=== PATIENT | male | born 1955 | race Caucasian/White ===

== ENCOUNTER 2020-12-26 15:33 | Observation (INO) ==
[2020-12-26] MEDS ORDERED: NS 0.9% 1000 ml BAG 1,000 ML IV ONE (21:35)
[2020-12-26 22:35] LABS: ABS Basophils 0.1 10^3/ul (0-0.2); ABS Eosinophils 0.1 10^3/ul (0-0.6); ABS Lymphocytes 2.4 10^3/ul (1.0-4.8); ABS Monocytes 0.8 10^3/ul (0-0.8); ABS Neutrophils 8.3 10^3/ul (1.5-7.7); Eosinophil % 1.1 %; Hematocrit 42 % (42-52); Hemoglobin 14.2 g/dL (14.0-18.0); Lymphocyte % 20.8 %; Mean Corpuscular HGB Conc 34 g/dL (31-36); Mean Corpuscular Hemoglobin 32 pg (27-31); Mean Corpuscular Volume 92 fL (80-94); Platelet Count 243 10^3/uL (150-450); Red Blood Count 4.49 10^6 /uL (4.18-5.48); Red Cell Distribution Width 13 % (10-15); White Blood Count 11.7 10^3/uL (3.5-10.8)
[2020-12-26 22:41] LABS: INR 1.15 (0.86-1.15)
[2020-12-26 22:54] LABS: ALT 45 U/L (7-52); Albumin 3.9 g/dL (3.2-5.2); Albumin/Globulin Ratio 0.9 (1-3); Alkaline Phosphatase 63 U/L (35-149); Blood Urea Nitrogen 24 mg/dL (6-24); CO2 Carbon Dioxide 25 mmol/L (22-32); Chloride 95 mmol/L (101-111); EGFR African American 79.1 (>60); EGFR Non-African American 65.3 (>60); Globulin 4.3 g/dL (2-4); Glucose 176 mg/dL (70-100); Lipase 23 U/L (11.0-82.0); Sodium 133 mmol/L (135-145); Total Protein 8.2 g/dL (6.4-8.9)
[2020-12-26] MEDS ORDERED: Iodixanol (CONTRAST) 320 MG/ML 100 ML SDV IV ONE (23:00)
[2020-12-26 23:10] LABS: Troponin I 0.03 ng/mL (<0.03)
[2020-12-26 23:30] LABS: AST 20 U/L (13-39); Anion Gap 13 mmol/L (2-11)
[2020-12-27 02:31] LABS: Cholesterol 185 mg/dL; HDL Cholesterol 58.4 mg/dL; LDL Cholesterol 99 mg/dL; Triglycerides 140 mg/dL
[2020-12-27] MEDS ORDERED: Al Hydrox/Mg Hydrox/Simet LIQ 30 ML UDC PO ONE (03:02)
[2020-12-27] MEDS ORDERED: Pantoprazole VIAL 40 MG VIAL IV ONE (03:03)
[2020-12-27] MEDS ORDERED: Insulin GLARGINE 100 un/ml 10 ml VIAL SUBCUT ONE ×2 (03:11→08:07)
[2020-12-27 04:04] LABS: C Reactive Protein 229.66 mg/L (<8.01)
[2020-12-27] MEDS ORDERED: Dextrose 50% Syringe 50 ml 25 GM/50 ML SYRINGE IV PUSH PRN (08:06)
[2020-12-27] MEDS: Aspirin EC 81 mg TAB.EC (enteric coated) PO SCH (10:25)
[2020-12-27] MEDS: Enoxaparin 40 MG/0.4 ML SYR SUBCUT SCH (10:26)
[2020-12-27] MEDS: Lactated Ringers 1000 ml BAG 1,000 ML IV SCH ×2 (12:09→20:10)
[2020-12-27] MEDS ORDERED: Insulin GLARGINE 100 un/ml 10 ml VIAL SUBCUT SCH (21:00)
[2020-12-28 06:12] LABS: Hematocrit 36 % (42-52); Hemoglobin 12.7 g/dL (14.0-18.0); Mean Corpuscular HGB Conc 35 g/dL (31-36); Mean Corpuscular Hemoglobin 33 pg (27-31); Mean Corpuscular Volume 92 fL (80-94); Mean Platelet Volume 7.7 fL (7.4-10.4); Platelet Count 228 10^3/uL (150-450); Red Blood Count 3.91 10^6 /uL (4.18-5.48); Red Cell Distribution Width 13 % (10-15); White Blood Count 10.9 10^3/uL (3.5-10.8)
[2020-12-28 06:21] LABS: Calcium 8.3 mg/dL (8.6-10.3); Potassium 3.6 mmol/L (3.5-5.0)
[2020-12-28 06:27] LABS: EGFR African American 94.3 (>60); EGFR Non-African American 77.9 (>60); Phosphorus 2.3 mg/dL (2.5-5.0)
[2020-12-28] MEDS ORDERED: Polyethylene Glycol 3350 17 GM PACKET PO PRN (07:08)
[2020-12-28] MEDS ORDERED: Senna TAB 8.6 mg TAB PO PRN (07:08)
[2020-12-28] MEDS ORDERED: Magnesium Hydroxide LIQ 30 ML UDC PO PRN (07:08)
[2020-12-28] MEDS: Aspirin EC 81 mg TAB.EC (enteric coated) PO SCH (08:06)
[2020-12-28] MEDS: Enoxaparin 40 MG/0.4 ML SYR SUBCUT SCH (08:07)
[2020-12-28] MEDS ORDERED: Potassium Chlor 20 meq TAB.ER PO ONE (08:41)
[2020-12-28] MEDS ORDERED: Magnesium Hydroxide LIQ 30 ML UDC PO SCH (09:00)
[2020-12-28 12:47] VITALS: BP 117/88
[2020-12-28 15:24] LABS: Immunoglobulin Subclass IgG4 37.6 mg/dL
== END 2020-12-28 13:43 | disposition home or self-care (01) ==
LOC: ED 15:33 → EDHOLD 15:33 → MEDTELE 12-27 02:58
PROVIDERS: ADMIT Internal Medicine; ATTEND Hospitalist

== ENCOUNTER 2021-06-25 10:38 | Observation (INO) ==
[2021-06-25 11:17] LABS: ABS Basophils 0.1 10^3/ul (0-0.2); ABS Eosinophils 0.1 10^3/ul (0-0.6); ABS Lymphocytes 2.5 10^3/ul (1.0-4.8); ABS Monocytes 0.5 10^3/ul (0-0.8); Eosinophil % 1.4 %; Hematocrit 43 % (42-52); Hemoglobin 14.5 g/dL (14.0-18.0); Lymphocyte % 40.5 %; Mean Corpuscular HGB Conc 34 g/dL (31-36); Mean Corpuscular Hemoglobin 31 pg (27-31); Mean Corpuscular Volume 92 fL (80-94); Nucleated Red Blood Cells % 0.1; Platelet Count 212 10^3/uL (150-450); Red Blood Count 4.69 10^6 /uL (4.18-5.48); Red Cell Distribution Width 14 % (10-15); White Blood Count 6.1 10^3/uL (3.5-10.8)
[2021-06-25 11:39] LABS: INR 0.95 (0.86-1.15)
[2021-06-25 12:25] LABS: Albumin 4.3 g/dL (3.2-5.2); Albumin/Globulin Ratio 1.3 (1-3); Calcium 10.1 mg/dL (8.6-10.3); Globulin 3.4 g/dL (2-4); Potassium 4.3 mmol/L (3.5-5.0); Total Bilirubin 0.5 mg/dL (0.2-1.0); Total Protein 7.7 g/dL (6.4-8.9); eGFR CKD-EPI 71.8 (>60)
[2021-06-25] MEDS ORDERED: Iodixanol (CONTRAST) 320 MG/ML 100 ML SDV IV ONE (13:03)
[2021-06-25 15:25] LABS: Rapid COVID-19 Molecular Undetected (Undetected)
[2021-06-25] MEDS ORDERED: Dextrose 50% Syringe 50 ml 25 GM/50 ML SYRINGE IV PUSH PRN (15:34)
[2021-06-26 06:29] LABS: Calcium 9.8 mg/dL (8.6-10.3); Magnesium 1.8 mg/dL (1.9-2.7); Potassium 4.9 mmol/L (3.5-5.0)
[2021-06-26 06:34] LABS: eGFR CKD-EPI 74.2 (>60)
[2021-06-26] MEDS ORDERED: Insulin GLARGINE 100 un/ml 10 ml VIAL SUBCUT SCH (09:00)
[2021-06-26] MEDS ORDERED: Lisinopril/HCTZ 20/12.5 TB(NF) PO SCH (09:00)
[2021-06-26] MEDS ORDERED: Coenzyme Q10 CAP (NF) ** ENTER STREGNTH IN LABEL DIRECTIONS PO SCH (09:00)
[2021-06-26] MEDS ORDERED: Aminophylline 25 MG/ML VIAL ONE (11:02)
[2021-06-26] MEDS ORDERED: Regadenoson 0.4 MG/5 ML SYRINGE ONE (11:02)
[2021-06-26 16:58] VITALS: BP 149/89
== END 2021-06-26 16:56 | disposition home or self-care (01) ==
LOC: EDHOLD 10:38 → ED 10:38 → EDHOLD 18:04 → MEDTELE 19:19
PROVIDERS: ADMIT Student in an Organized Health Care Education/Training Program; ATTEND Hospitalist